=== PATIENT | female | born 1995 | race Hispanic/Latino ===

== ENCOUNTER 2023-10-04 19:16 | Emergency (ER) | payer OTHER ==
[2023-10-04] MEDS ORDERED: Lidocaine 1% PF 5 ML VIAL ONE (19:50)
[2023-10-04] MEDS ORDERED: Boostrix 0.5 ML (Tdap) VIAL (>/=7 yrs of age) ONE (20:06)
== END 2023-10-04 20:32 | disposition home or self-care (01) ==
LOC: CSHERS 19:16
DX: S61.412A Laceration without foreign body of left hand, initial encounter (principal); Z23 Encounter for immunization; X58.XXXA Exposure to other specified factors, initial encounter
CPT/HCPCS: 12001; 90471; 90715